=== PATIENT | female | born 1960 | race Caucasian/White ===

== ENCOUNTER 2017-09-17 05:47 | Inpatient (IN) | payer MEDICARE ==
[2017-09-16 12:44] VITALS: BMI 40.8
[2017-09-17] MEDS ORDERED: Midazolam HCl 2 mg/2 ml Vial ONE (06:18)
[2017-09-17] MEDS ORDERED: Fentanyl 100 MCG/2 ML VIAL ONE ×2 (06:18→08:54)
[2017-09-17] MEDS ORDERED: Lidocaine 2% Jelly 5 ML TUBE ONE (06:24)
[2017-09-17] MEDS ORDERED: Sodium Chloride 0.9% 10 ML ONE (06:27)
[2017-09-17] MEDS ORDERED: CEFAZOLIN/Water 2 GM/20 ML SYRINGE ONE (07:06)
[2017-09-17 07:13] LABS: Hemoglobin 13.9 g/dL (12.0-16.0); Mean Corpuscular Hemoglobin 27.5 pg (27.0-31.0); Mean Corpuscular Volume 83.5 fl (81.0-99.0); Mean Platelet Volume 7.3 fL (7.4-10.4); Platelet Count 322 thou/uL (130-400); RBC Distribution Width 11.8 % (11.5-14.5); Red Blood Cell (RBC) Count 5.04 mill/uL (4.20-5.40); White Blood Cell (WBC) Count 7.7 thou/uL (4.8-10.8)
[2017-09-17 07:24] LABS: Anion Gap 15 mmol/L (10-20); BUN (Urea Nitrogen) 10 mg/dL (9.8-20.1); Calc. Creatinine Clearance 111 mL/min (70-130); Calcium 9.8 mg/dL (7.8-10.44); Carbon Dioxide 25 mmol/L (22-29); Chloride 102 mmol/L (98-107); Estimated GFR-MDRD 67; Glucose 138 mg/dL (70-105); Potassium 3.8 mmol/L (3.5-5.1); Sodium 138 mmol/L (136-145)
--- NOTE | 2017-09-17 08:48 | OP ---
DATE OF PROCEDURE: 09/17/2017 SURGEON: Leno Alvarez M.D. [employer] MACHINE ADJUSTER: Joey Villegas PA-C PROCEDURES: Anterior cervical discectomy C6-7. Interbody arthrodesis, intravertebral biomechanical device, local morselized autograft, demineralized bone matrix, anterior titanium instrumentation C6-7 . PROCEDURE IN DETAIL: The patient was brought into the operating room, intubated. She was positioned supine with the head in modest extension on a gel-filled donut. Incision was made in the right prec ervical area and dissecting medial to the sternocleidomastoid muscle. We identified the anterior cer vical spine and our level was confirmed by x-ray. Using the operating microscope and microdissection techniques, we completely decompressed the intravertebral discs down to the level of the dura with p articular attention to the right where a large disk herniation was found. The bony endplates were th en decorticated for the purpose of arthrodesis and appropriately sized intravertebral biomechanical P CURYUNG device was brought into the field, filled with demineralized bone matrix and local morselized aut ograft, and tapped into place securely at C6-7. Next, an anterior plate was brought in the field and secured to C6 and C7 using two 14 mm screws at each level. The wound was then extensively irrigated , immaculate hemostasis was secured, and the wound was closed in anatomic layers.
[2017-09-17] MEDS ORDERED: HYDROcodone/Acetaminophen 5/325 mg Tablet ONE (10:29)
[2017-09-17] MEDS ORDERED: Ondansetron PF 4 MG/2 ML Vial ONE (14:27)
[2017-09-17] MEDS ORDERED: Dexamethasone 20 MG/5 ML VIAL ONE (14:27)
[2017-09-17] MEDS ORDERED: PROPOFOL 200 MG/20 ML VIAL ONE (14:27)
[2017-09-17] MEDS ORDERED: PHENYLEPHRINE-NS 100 MCG/ML 10 ML SYRINGE ONE (14:27)
[2017-09-17] MEDS ORDERED: Glycopyrrolate 0.2 MG/ML 5 ML SYRINGE ONE (14:27)
[2017-09-17] MEDS ORDERED: Lidocaine 1% PF 5 ML VIAL ONE (14:27)
--- NOTE | 2017-11-23 13:43 | EKG ---
Test Reason : PREOP Blood Pressure : / mmHG Vent. Rate : 079 BPM Atrial Rate : 079 BPM P-R Int : 152 ms QRS Dur : 088 ms QT Int : 392 ms P-R-T Axes : 063 039 047 degrees QTc Int : 449 ms Normal sinus rhythm Normal ECG No previous ECGs available Confirmed by WINIFRED SILVA MD ([id number]) on 11/23/2017 1:43:08 PM Referred By: [email or web address] Confirmed By:WINIFRED SILVA MD
== END 2017-09-17 11:01 | disposition home or self-care (01) | DRG 473 ==
LOC: SURG A 05:47 → EDSTATUS 09:38
PROVIDERS: ADMIT Neurological Surgery; ATTEND Neurological Surgery
PROC: 0RB30ZZ Excision of Cervical Vertebral Disc, Open Approach (ICD-10-PCS; principal; 2017-09-17)
PROC: 0RG10A0 Fusion of Cervical Vertebral Joint with Interbody Fusion Device, Anterior Approach, Anterior Column, Open Approach (ICD-10-PCS; 2017-09-17)
DX: M50.123 Cervical disc disorder at C6-C7 level with radiculopathy (principal); E11.9 Type 2 diabetes mellitus without complications; I10 Essential (primary) hypertension; F17.210 Nicotine dependence, cigarettes, uncomplicated; F31.9 Bipolar disorder, unspecified; J44.9 Chronic obstructive pulmonary disease, unspecified
CPT/HCPCS: 76001; 80048; 85027; 93005; 93010; 96374; C1713; C1776; J1100; J2001; J2250; J2405; J2704; J3010; J3490